=== PATIENT | female | born 1995 | race Caucasian/White ===

== ENCOUNTER 2018-01-11 14:10 | Emergency (ER) | payer OTHER ==
[2018-01-11 14:24] VITALS: BP 128/78; BMI 25.0
--- NOTE | 2018-01-11 15:06 | ED.ABDFE ---
HPI - Time seen Time seen: 14:55 - PCP Primary Care Physician: NFD - Complaint Chief Complaint Doctors Comments: Patient presents with right flank pain of one days duration. Denies dysuria,constipation or fever. Pain level 7; sharp, constant,worse with bending. Chief Complaint:: PATIENT STATED SHE STARTED HAVING RIGHT FLANK PAIN THAT STARTED LAST NIGHT - Source History Provided: Patient - Mode of arrival Mode of Arrival: Ambulatory - Timing Onset of Chief Complaint: 01/10/18 PMH - PMH Past Medical History: No Past Surgical History: No - Family History History of Family Medical Conditions: No - Social History Does patient currently use any type of tobacco product: Yes Have you used tobacco products in the last 12 months: Yes Type of Tobacco Use: Cigarettes How many years tobacco product used: 5 Does any household member use tobacco: No Alcohol Use: None Do you use any recreational Drugs:: No Lives With: Family Lives Where: Home - infectious screening In the last 2 months have you had wt loss of >10#?: NO Have you had fever, night sweats or hemotysis?: No Have you traveled outside the country in the last 6 months?: No Isolation: Standard ROS - Review of Systems Eyes: No Symptoms Reported ENTM: No Symptoms Reported Respiratoy: No Symptoms Reported Cardiovascular: No Symptoms Reported Gastrointestinal/Abdominal: No Symptoms Reported Genitourinary: No Symptoms Reported Neurological: No Symptoms Reported Musculoskeletal: No Symptoms Reported Integumentary: No Symptoms Reported Hematologic/Lymphatic: No Symptoms Reported Endocrine: No Symptoms Reported Psychiatric: No Symptoms Reported All Other Systems: Reviewed and Negative PE - Vital Signs Vitals: Temperature 98.3 F Pulse Rate 80 Respiratory Rate 16 Blood Pressure 128/78 O2 Sat by Pulse Oximetry 100 - General Limitations: No Limitations General Appearance: Alert - Head Head Exam: Normal Inspection, Atraumatic - Eyes Eye exam: Normal Appearance, PERRL, EOMI - ENT ENT Exam: Normal Exam - Neck Neck Exam: Normal Inspection, Full ROM - Chest Chest Inspection: Normal Inspection - Respiratory Respiratory Exam: Normal Lung Sounds Bilat Respiratory Exam: Bilateral Clear to Auscultation - Cardiovascular Cardiovascular Exam: Regular Rate, Normal Rhythm - Abdominal Exam Abdominal Exam: Normal Inspection, Normal Bowel Sounds Abdominal Tenderness: Diffuse - Rectal Rectal Exam: Deferred - Back Back Exam: Normal Inspection, Full ROM - Extremeties Extremities Exam: Normal Inspection, Full ROM - External Exam: Female: Deferred : Speculum Exam (Female): Deferred : Bimanual Exam (female): Deferred - Neurologic Neurological Exam: Alert, Oriented X3, CN II-XII Intact - Psychiatric Psychiatric Exam: Normal Affect - Skin Skin Exam: Warm, Dry, Intact Course - Reevaluation 1st: Unchanged ROR - Labs Reviewed Laboratory Results Reviewed?: Yes (UA:5+bld,Leuk +,WBC 5-10) Result Diagrams: 01/11/18 15:30 01/11/18 15:30 Laboratory: WBC 8.5 X10^3/uL (3.6-10.0) 01/11/18 15:30 RBC 4.39 X10^6/uL (3.5-5.4) 01/11/18 15:30 Hgb 13.7 g/dL (12.0-16.0) 01/11/18 15:30 Hct 39.8 % (36.0-47.0) 01/11/18 15:30 MCV 90.6 fL (80.0-100.0) 01/11/18 15:30 MCH 31.3 pg (27.0-34.0) 01/11/18 15:30 MCHC 34.5 g/dL (33.0-35.0) 01/11/18 15:30 RDW 14.2 % (11.6-16.5) 01/11/18 15:30 Plt Count 270 X10^3/uL (150.0-450.0) 01/11/18 15:30 MPV 8.1 fL (7.4-11.0) 01/11/18 15:30 Neut % (Auto) 64.9 % (42.0-75.0) 01/11/18 15:30 Lymph % (Auto) 24.3 % (21.0-51.0) 01/11/18 15:30 [place] % (Auto) 7.9 % (0.0-13.0) 01/11/18 15:30 Eos % (Auto) 2.3 % (0.9-2.9) 01/11/18 15:30 Baso % (Auto) 0.6 % (0.2-1.0) 01/11/18 15:30 Neut # (Auto) 5.5 x10^3/uL (2.2-4.8) H 01/11/18 15:30 Lymph # (Auto) 2.1 X10^3/uL (1.3-2.9) 01/11/18 15:30 [place] # (Auto) 0.7 x10^3/uL (0.3-0.8) 01/11/18 15:30 Eos # (Auto) 0.2 x10^3/uL (0.0-0.2) 01/11/18 15:30 Baso # (Auto) 0.1 X10^3/uL (0.0-0.1) 01/11/18 15:30 Absolute Nucleated RBC 0.0 /100WBC 01/11/18 15:30 Sodium 141 mmol/L (136-145) 01/11/18 15:30 Corrected Sodium TNP 01/11/18 15:30 Potassium 4.0 mmol/L (3.5-5.1) 01/11/18 15:30 Chloride 107 mmol/L (98-107) 01/11/18 15:30 Carbon Dioxide 27.8 mmol/L (21-32) 01/11/18 15:30 BUN 7 mg/dL (7-18) 01/11/18 15:30 Creatinine 0.69 mg/dL (0.55-1.02) 01/11/18 15:30 Est GFR (MDRD) Af Amer > 60 (>60) 01/11/18 15:30 Est GFR (MDRD) Non-Af > 60 (>60) 01/11/18 15:30 Glucose 82 mg/dL (65-99) 01/11/18 15:30 Calcium 7.9 mg/dL (8.5-10.1) L 01/11/18 15:30 C-Reactive Protein 18.20 mg/L (0-3.0) H 01/11/18 15:30 Specimen Type Clean catch urine 01/11/18 15:06 Urine Color Pale yellow (YELLOW) 01/11/18 15:06 Urine Appearance Hazy (CLEAR) 01/11/18 15:06 Urine pH 7.0 (5.0 - 8.0) 01/11/18 15:06 Ur Specific [place] 1.010 (1.000-1.030) 01/11/18 15:06 Urine Protein Negative (NEGATIVE) 01/11/18 15:06 Urine Glucose (UA) Negative (NEGATIVE) 01/11/18 15:06 Urine Ketones Negative (NEGATIVE) 01/11/18 15:06 Urine Occult Blood 5+ (NEGATIVE) 01/11/18 15:06 Urine Nitrite Negative (NEGATIVE) 01/11/18 15:06 Urine Bilirubin Negative (NEGATIVE) 01/11/18 15:06 Urine Urobilinogen Normal (NORMAL) 01/11/18 15:06 Ur Leukocyte Esterase 1+ (NEGATIVE) 01/11/18 15:06 Urine RBC 3-5 /HPF (NONE SEEN) 01/11/18 15:06 Urine WBC 5-10 /HPF (NONE SEEN) 01/11/18 15:06 Ur Squamous Epith Cells Few /HPF (NEGATIVE) 01/11/18 15:06 Urine Bacteria Trace /HPF (NEGATIVE) 01/11/18 15:06 Ur Culture Indicated? Yes/culture set up 01/11/18 15:06 - XRAY XRAY Interpreted by: Radiologist (Chest: There no focal consolidation, pleural effusion or pneumothorax. Pulmonary vascularity is normal. Abdominal: demonstrate a nonobstructive bowel gas pattern. Gas and stool are seen throughout the colon. There is no small bowel distention. There is no radiographic evidence of pneumoperitoneu. Soft tissues are unremarkable. Osseous structures are intact. Impression: No acute cardiopulmonary process. Nonobstructive bowel gas pattern without radiographic evidence of pneumoperitoneum.) - Diagnosis Discharge Problem: UTI (urinary tract infection), Constipation - Discharge Plan Condition: Stable Prescriptions: Ciprofloxacin HCl [CIPRO 500 MG TAB *] 500 mg PO Q12H #10 tab Phenazopyridine HCl [Pyridium] 100 mg PO TID PRN #9 tab PRN Reason: PAINFUL URINATION - Follow ups/Referrals Follow ups/Referrals: NFD,None [Primary Care Provider] - 3 days - Instructions Instructions: Constipation, Adult
[2018-01-11 15:13] LABS: BILIRUBIN,URINE NEGATIVE (NEGATIVE); BLOOD/HEMOGLOBIN,URINE 5+ (NEGATIVE); GLUCOSE, URINE NEGATIVE (NEGATIVE); KETONES,URINE NEGATIVE (NEGATIVE); LEUKOCYTE ESTERASE ,URINE 1+ (NEGATIVE); NITRITES,URINE NEGATIVE (NEGATIVE); PROTEIN,URINE NEGATIVE (NEGATIVE); UROBILINOGEN,URINE NORMAL (NORMAL)
[2018-01-11 15:22] LABS: APPEARANCE,URINE HAZY (CLEAR); COLOR,URINE PALE YELLOW (YELLOW)
[2018-01-11 15:23] LABS: BACTERIA,URINE TRACE /HPF (NEGATIVE); SQUAMOUS EPITHELIAL CELL,UR FEW /HPF (NEGATIVE)
--- NOTE | 2018-01-11 15:37 | RAD ---
ACUTE ABDOMINAL SERIES CLINICAL HISTORY: 22-year-old female with abdominal pain. COMPARISON: None. FINDINGS: PA chest radiograph demonstrates normal cardiopericardial silhouette. There is no focal consolidation , pleural effusion or pneumothorax. Pulmonary vascularity is normal. Abdominal radiographs demonstrate a nonobstructive bowel gas pattern. Gas and stool are seen througho ut the colon. There is no small bowel distention. There is no radiographic evidence of pneumoperitone um. Imaged osseous structures are intact. Soft tissues are unremarkable. IMPRESSION: 1. No acute cardiopulmonary process. 2. Nonobstructive bowel gas pattern without radiographic evidence of pneumoperitoneum. Reported By:
[2018-01-11 15:51] LABS: BASOPHILS # (AUTO) 0.1 X10^3/uL (0.0-0.1); BASOPHILS % (AUTO) 0.6 % (0.2-1.0); EOSINOPHILS # (AUTO) 0.2 x10^3/uL (0.0-0.2); EOSINOPHILS % (AUTO) 2.3 % (0.9-2.9); HEMATOCRIT 39.8 % (36.0-47.0); HEMOGLOBIN 13.7 g/dL (12.0-16.0); LYMPHOCYTES # (AUTO) 2.1 X10^3/uL (1.3-2.9); LYMPHOCYTES % (AUTO) 24.3 % (21.0-51.0); MEAN CORPUSCULAR HEMOGLOBIN 31.3 pg (27.0-34.0); MEAN CORPUSCULAR HGB CONC 34.5 g/dL (33.0-35.0); MEAN CORPUSCULAR VOLUME 90.6 fL (80.0-100.0); MEAN PLATELET VOLUME 8.1 fL (7.4-11.0); MONOCYTES # (AUTO) 0.7 x10^3/uL (0.3-0.8); MONOCYTES % (AUTO) 7.9 % (0.0-13.0); NEUTROPHILS # (AUTO) 5.5 x10^3/uL (2.2-4.8); NEUTROPHILS % (AUTO) 64.9 % (42.0-75.0); PLATELET COUNT 270 X10^3/uL (150.0-450.0); RED BLOOD COUNT 4.39 X10^6/uL (3.5-5.4); RED CELL DISTRIBUTION WIDTH 14.2 % (11.6-16.5); WHITE BLOOD COUNT 8.5 X10^3/uL (3.6-10.0)
[2018-01-11] MEDS ORDERED: CITROMA ONE (15:58)
[2018-01-11 16:04] LABS: BLOOD UREA NITROGEN 7 mg/dL (7-18); CALCIUM 7.9 mg/dL (8.5-10.1); CARBON DIOXIDE 27.8 mmol/L (21-32); CHLORIDE 107 mmol/L (98-107); CREATININE 0.69 mg/dL (0.55-1.02); SODIUM 141 mmol/L (136-145); eGFR BLACK RACES > 60 (>60); eGFR NON BLACK RACES > 60 (>60)
[2018-01-11] MEDS ORDERED: CITROMA PO ONE (16:17)
== END 2018-01-11 16:27 | disposition home or self-care (01) ==
LOC: ER 14:32
DX: N39.0 Urinary tract infection, site not specified (principal); K59.00 Constipation, unspecified
CPT/HCPCS: 36415; 74022; 80048; 81001; 85025; 86140; 87086; 99283